=== PATIENT | female | born 1985 | race Two or more races ===

== ENCOUNTER 2024-11-05 11:39 | Emergency (ER) | payer OTHER, SELFPAY ==
--- NOTE | ~2024-11-05 | US_ITS ---
CLINICAL HISTORY: LLQ pain. ovarian cysts. Torsion? US pelvis transabdominal and transvaginal with Doppler Comparison: CT/SR - CT ABDOMEN PELVIS W IV CON - 11/05/24 14:09 EST Findings: Transabdominal scanning performed for overall anatomy. Transvaginal scanning performed for additional detail. Anteverted uterus is 7.7 cm length. Normal myometrium. No endometrial lesion, 2 mm thickness. There is an intrauterine device within the endometrial canal. Right ovary 2.5 x 1.9 x 2.0 cm. Left ovary 7.6 x 4.3 x 4.2cm. There is a 6.1 x 3.7 x 3.5 cm mildly complex cyst containing a septation within the left ovary. Normal color Doppler with arterial/venous spectral tracing of both ovaries. Small amount of free fluid adjacent to the left ovary. IMPRESSION: 1. 6.1 cm mildly complex cyst within the left ovary. Recommend ultrasound follow-up in 6 weeks. 2. There is a small amount of free fluid adjacent to the left ovary. 3. There is an intrauterine device within the endometrial canal. This document has been electronically signed by: Vernell Juárez MD on 11/05/2024 18:12:12
--- NOTE | ~2024-11-05 | CT_ITS ---
CLINICAL HISTORY: Abdominal pain. Colitis CT abdomen and pelvis with contrast Comparison: None Findings: The lung bases are clear. The gallbladder and solid organs are within normal limits. No renal stones. There is thickening of the wall of the colon extending from the distal transverse colon to the distal descending colon. No bowel obstruction. There is a 6.5 cm left ovarian cyst. Unremarkable right ovary. Intrauterine device within the endometrial canal. Near-complete decompression of the urinary bladder. Normal appendix. The bones are intact. IMPRESSION: 1. There is colitis of the distal colon. Consider infectious colitis or inflammatory bowel disease. 2. 6.5 cm left ovarian cyst. Recommend further evaluation with ultrasound. This document has been electronically signed by: Vernell Juárez MD on 11/05/2024 15:28:18
[2024-11-05 11:41] VITALS: BP 143/83; PULSE 118; RESP 18; TEMP 37.2; O2SAT 100; BMI 31.7
--- NOTE | 2024-11-05 11:43 | ED.ABDPAIN ---
HPI - Abdominal Pain General Chief Complaint: Abdominal Pain Stated Complaint: abd pain, blood in stool Time Seen by Provider: 11/05/24 13:03 Source: patient Mode of arrival: ambulatory Limitations: no limitations History of Present Illness ED Provider: Silas Keyes HPI narrative: 39 yold female with past medical history of rheumatoid arthritis and fibromyalgia presents to ED for lower abdominal pain and 4 episodes of diarrhea with bloody stool. Patient denies any fever or chills or any recent trauma. Patient denies being on any blood thinners or taking any Motrin every day. Related Data Previous Rx's ?Medication ?Instructions ?Recorded ciprofloxacin HCl 500 mg tablet 500 mg PO Q12H 7 days #14 tabs 11/05/24 metronidazole 500 mg tablet 500 mg PO BID 7 days #14 tabs 11/05/24 naproxen 500 mg tablet 500 mg PO BID PRN pain 7 days #14 11/05/24 tabs Allergies Allergy/AdvReac Type Severity Reaction Status Date / Time No Known Allergies Allergy Verified 11/05/24 11:47 Review of Systems Review of Systems Lower abdominal pain bloody diarrhea Yes all other systems are reviewed and are negative Physical Exam ED Vital Signs: Vital Signs - 24 hr 11/05/24 11:41 11/05/24 17:57 11/05/24 18:43 Temperature 98.9 F Pulse Rate 118 H 77 79 Respiratory Rate 18 14 18 Blood Pressure 143/83 H 124/71 127/79 Pulse Oximetry 100 99 98 Oxygen Delivery Method Room Air Room Air Room Air 11/05/24 19:06 Temperature 98.0 F Pulse Rate 79 Respiratory Rate 18 Blood Pressure 127/79 Pulse Oximetry 98 Oxygen Delivery Method Room Air BMI result Body Mass Index 31.7 Const General: cooperative, healthy appearing, comfortable and no acute distress Orientation/consciousness: patient oriented x3 HENMT Head: Yes normal to inspection, Yes No palpable skull fracture present, Yes normocephalic and Yes atraumatic Throat: Yes posterior oropharynx normal, Yes tonsils normal and Yes uvula midline Eyes General: appearance normal, both eyes and all related structures Neck Neck: Yes normal visual inspection, Yes full ROM, Yes no lymphadenopathy, Yes no meningeal signs, Yes trachea midline, Yes supple, No anterior neck swelling and No tender Chest Chest palpation & inspection: normal inspection of the chest and normal palpation of entire chest wall Resp Effort & Inspection: normal respiratory effort and able to speak in complete sentences Auscultation: clear to auscultation bilaterally Cardio Jugular venous distension: no JVD Heart sounds: S1 normal heart sound present and S2 normal heart sound present GI Inspection: Yes normal to inspection Palpation (GI): Soft to palpation, not firm, Tenderness to palpation present (GI) in the LLQ, no guarding and not rigid Other: Rectal exam negative for melena, black stool, bright red blood, or any active bleeding. General: Yes no CVA tenderness Back/Spine/Pelvis Back: no CVA tenderness and No back tenderness Skin General skin exam: no rashes or lesions noted, elasticity normal and turgor normal Neuro General: patient oriented x3, gait normal, tone normal, moves all extremities, Normal light touch and pain sensation, no meningeal signs, no focal motor deficits, CN's II-XI intact bilaterally and normal sensation to monofilament Extrem General: Yes normal to inspection, Yes full ROM and Yes capillary refill normal Psych Appearance: grossly normal, well kempt and not disheveled Course Course Course Narrative: This is an RME performed by Papito Espinoza CNP: Additional HPI, ROS, PE not included below will be deferred to primary provider. Patient is a 39-year-old female past medical history of rheumatoid arthritis, fibromyalgia, depression, anxiety presents emergency department for evaluation. She reports yesterday evening she began began experiencing mid lower abdominal pain described as an intense severe pain with the associated episodes of diarrhea. She noticed small amounts of blood in the diarrhea. Diarrhea has since resolved and now she is passing bright red blood from the rectum with presence of clots. She has vomited twice without any blood in the emesis. She denies any vaginal bleeding. She denies any hematuria, genitourinary symptoms. She does mention eating catered food yesterday. Only medication she takes semaglutide for weight loss. Plan: Serum labs, urinalysis, occult stool Medical Decision Making Medical Decision Making MDM Narrative: 39-year-old female presents to ED for lower abdominal pain and bloody diarrhea. Patient denies any new antibiotics or recent hospital admission. Rectal exam negative for any patsy blood, black stool, melena. Labs Pepcid CT scan of the abdomen ordered. 4:38pm: CT scan came back positive for colitis of the descending colon. Also shows 6.5 cm left ovarian cyst due to signs was sent for ultrasound to rule out torsion ovarian abscess. 6:30pm: Ultrasound negative for torsion but just confirmed cysts. Negative for signs of tubo-ovarian abscess. Patient will be discharged with antibiotics and recommend follow up with primary care provider. Patient explained worrisome signs and informed to return to the ED immediately. not suspecting peforation, abscess,small bowel obsttuction, PID, or any other life threatening etiologies. Differential Diagnosis Differential Diagnoses: The differential diagnosis associated with the presentation includes (Colitis, tubo-ovarian abscess, diverticulitis, torsion, appendicitis,) Admission/Observation Consideration of admission/observation: Escalation of care including admission/observation considered Lab Data MDM Lab Attestation statement: I reviewed the patient's lab results. 11/05/24 12:13 11/05/24 12:13 Labs: Lab Results 11/05/24 11/05/24 Range/Units 12:13 13:33 WBC 12.9 H (4.8-10.8) X10*3/uL RBC 4.48 (4.20-5.50) X10*6/uL Hgb 13.4 (12.0-16.0) g/dl Hct 40.4 (37.0-47.0) % MCV 90.2 (80.0-98.0) fL MCH 29.9 (27.0-33.0) pg MCHC 33.2 (31.0-35.0) g/dl RDW 12.2 (11.0-16.0) % Plt Count 307 (160-400) X10*3/uL MPV 10.1 (9.4-12.3) fL Immature Gran % (Auto) 0.2 (0.0-0.4) % Neut % (Auto) 87.0 H (45-73) % Lymph % (Auto) 7.0 L (20-40) % Sp[place]ding % (Auto) 5.2 (2-11) % Eos % (Auto) 0.1 (0-4) % Baso % (Auto) 0.5 (0-2) % Lymph # (Auto) 0.9 L (1.2-4.9) X10*3/uL [place]ding # (Auto) 0.7 (0.1-1.2) X10*3/uL Eos # (Auto) 0.0 (0.0-0.4) X10*3/uL Baso # (Auto) 0.1 (0.0-0.2) X10*3/uL Abs Immat Gran (auto) 0.02 (0.00-0.03) X10*3/uL Absolute Neuts (auto) 11.2 H (2.0-8.3) x10*3/uL Absolute Nucleated RBC 0.000 (0.0-0.012) X10*3/uL Nucleated RBC % (auto) 0.0 (0.0-0.2) /100WBC PT 12.9 H (10.9-12.4) SEC INR 1.1 (0.9-1.1) Sodium 139 (135-145) mmol/L Potassium 4.4 (3.3-5.1) mmol/L Chloride 107 (96-108) mmol/L Carbon Dioxide 24 (22-29) mmol/L Anion Gap 12 (12-20) BUN 14 (9-16) mg/dL Creatinine 0.75 (0.5-1.4) mg/dL Estim Creat Clear Calc 99.6 Estimated GFR > 60 Random Glucose 103 (60-115) mg/dL Calcium 9.1 (8.4-10.2) mg/dL Magnesium 1.9 (1.6-2.6) mg/dL Total Bilirubin 0.5 (0.0-1.0) mg/dL AST 25 (5-31) U/L ALT 19 (0-31) U/L Alkaline Phosphatase 62 (39-117) U/L Total Protein 8.1 H (6.5-8.0) g/dL Albumin 4.2 (3.5-5.0) g/dL Lipase 13 (8-78) U/L Urine Color Dark Yellow Urine Appearance Cloudy Urine pH 6.5 (5.0-9.0) Ur Specific Bevier >= 1.030 H (1.005-1.025) Urine Protein 30 (1+) H (Neg-Trace) mg/dL Urine Glucose (UA) Negative (Negative) mg/dL Urine Ketones 40 (Negative) mg/dL Urine Blood Large (3+) H (Negative) Urine Nitrite Negative (Negative) Ur Leukocyte Esterase Moderate (2+) H (Negative) Urine RBC >20 H (0-2) /HPF Urine WBC >50 H (0-5) /HPF Ur Squamous Epith Cells 0-2 (0-2) /HPF Urine Bacteria None Seen (None Seen) Hyaline Casts 0-2 (0-2) /LPF Urine Test NEGATIVE (NEGATIVE) Stool Occult Blood NEGATIVE (NEGATIVE) Influenza Type A (PCR) NEGATIVE (Negative) Influenza Type B (PCR) NEGATIVE (Negative) RSV RNA Qual (PCR) NEGATIVE (Negative) SARS-CoV-2 RNA (RT-PCR) NEGATIVE (Negative) Independent Interpretation I performed an independent interpretation of an: Ultrasound and CT Scan Radiology Impression Discussion of test interpretation with radiology: I have reviewed the radiologist's reading. Independent Historian Clinical information obtained from an independent historian. History obtained from or confirmed by: Other (Pain) Prescription Management I considered prescription management with: Pain Medication and Antibiotic Medications Administered Discontinued Medications Generic Name Dose Route Start Last Admin Trade Name Freq PRN Reason Stop Dose Admin Famotidine 20 mg 11/05/24 13:19 11/05/24 14:32 Famotidine/Pf 20 Mg/2 Ml Vial IVPUSH 11/05/24 13:20 20 mg ONCE ONE Administration Sodium Chloride 1,000 mls @ 999 mls/hr 11/05/24 13:06 11/05/24 16:54 Ns IV 11/05/24 14:06 Infused .Q1H1M STA Infusion Iohexol 100 ml 11/05/24 14:36 11/05/24 14:36 Iohexol 350 Mg/Ml 100 Ml Infus..Btl IV 11/05/24 14:37 85 ml ONCE ONE Administration Ketorolac Tromethamine 30 mg 11/05/24 18:56 11/05/24 19:03 Ketorolac Tromethamine 30 Mg/Ml Vial IM 11/05/24 18:57 30 mg ONCE ONE Administration Discharge Plan Discharge Clinical Impression: Colitis, Ovarian cyst, UTI (urinary tract infection) Patient Disposition: Home, Self-Care Instructions: Ovarian Cyst (ED), Urinary Tract Infection in Women (ED), Colitis (ED) Additional Instructions: You will need follow up with primary care provider and OBGYN. You will be given copy of CAT scan and ultrasound results. Return to the ED immediately for any worsening abdominal pain, nausea, vomiting, flank pain, fever, chills, profuse blood in stool, weakness, dizziness, or any other concerning symptoms. CT abdomen and pelvis with contrast Comparison: None Findings: The lung bases are clear. The gallbladder and solid organs are within normal limits. No renal stones. There is thickening of the wall of the colon extending from the distal transverse colon to the distal descending colon. No bowel obstruction. There is a 6.5 cm left ovarian cyst. Unremarkable right ovary. Intrauterine device within the endometrial canal. Near-complete decompression of the urinary bladder. Normal appendix. The bones are intact. IMPRESSION: 1. There is colitis of the distal colon. Consider infectious colitis or inflammatory bowel disease. 2. 6.5 cm left ovarian cyst. Recommend further evaluation with ultrasound. This document has been electronically signed by: Vernell Juárez MD on 11/05/2024 15:28:18 Dictated By: Vernell Juárez MD Signed By: <Electronically signed by Vernell Juárez MD in [place]> 11/05/24 1529 US pelvis transabdominal and transvaginal with Doppler Comparison: CT/SR - CT ABDOMEN PELVIS W IV CON - 11/05/24 14:09 EST Findings: Transabdominal scanning performed for overall anatomy. Transvaginal scanning performed for additional detail. Anteverted uterus is 7.7 cm length. Normal myometrium. No endometrial lesion, 2 mm thickness. There is an intrauterine device within the endometrial canal. Right ovary 2.5 x 1.9 x 2.0 cm. Left ovary 7.6 x 4.3 x 4.2cm. There is a 6.1 x 3.7 x 3.5 cm mildly complex cyst containing a septation within the left ovary. Normal color Doppler with arterial/venous spectral tracing of both ovaries. Small amount of free fluid adjacent to the left ovary. IMPRESSION: 1. 6.1 cm mildly complex cyst within the left ovary. Recommend ultrasound follow-up in 6 weeks. 2. There is a small amount of free fluid adjacent to the left ovary. 3. There is an intrauterine device within the endometrial canal. This document has been electronically signed by: Vernell Juárez MD on 11/05/2024 18:12:12 Dictated By: Vernell Juárez MD Signed By: <Electronically signed by Vernell Juárez MD in OV> 11/05/24 1813 Prescriptions: New ciprofloxacin HCl 500 mg tablet 500 mg PO Q12H 7 Days Qty: 14 0RF metronidazole 500 mg tablet 500 mg PO BID 7 Days Qty: 14 0RF naproxen 500 mg tablet 500 mg PO BID PRN (Reason: pain) 7 Days Qty: 14 0RF Stand Alone Forms: Work/School Release Interventions: ED Discharge Assessment Last Done: 11/05/24 19:06 Discharge Date/Time: 11/05/24 19:08 Print Language: Uzbek
[2024-11-05 12:18] LABS: MANUAL DIFF FLAG NO
[2024-11-05 12:19] LABS: Basophils Absolute Auto 0.1 X10*3/uL (0.0-0.2); Basophils Percent Auto 0.5 % (0-2); Eosinophils Percent Auto 0.1 % (0-4); Hematocrit 40.4 % (37.0-47.0); Hemoglobin 13.4 g/dl (12.0-16.0); Imm Gran Abs Auto 0.02 X10*3/uL (0.00-0.03); Imm Gran Pct Auto 0.2 % (0.0-0.4); Lymphocytes Absolute Auto 0.9 X10*3/uL (1.2-4.9); Mean Corpuscular HGB Conc 33.2 g/dl (31.0-35.0); Mean Corpuscular Hemoglobin 29.9 pg (27.0-33.0); Mean Corpuscular Volume 90.2 fL (80.0-98.0); Mean Platelet Volume 10.1 fL (9.4-12.3); Monocytes Absolute Auto 0.7 X10*3/uL (0.1-1.2); Monocytes Percent Auto 5.2 % (2-11); Neutrophils Absolute Auto 11.2 x10*3/uL (2.0-8.3); Platelet Count 307 X10*3/uL (160-400); Red Blood Count 4.48 X10*6/uL (4.20-5.50); Red Cell Distribution Width 12.2 % (11.0-16.0); White Blood Count 12.9 X10*3/uL (4.8-10.8)
[2024-11-05 12:20] LABS: Appearance Urine Cloudy; Color Urine Dark Yellow; Glucose Urine UA Negative (Negative); Leukocyte Esterase Urine Moderate (2+) (Negative); Nitrite Urine Negative (Negative); PH 6.5 (5.0-9.0); Specific Gravity - Urine >= 1.030 (1.005-1.025); UMIC TRIGGER UACC YES; UPreg QC Valid YES; Urine Blood Large (3+) (Negative); Urine Ketones 40 mg/dL (Negative); Urine Pregnancy NEGATIVE (NEGATIVE); Urine Protein 30 (1+) mg/dL (Neg-Trace)
--- OUTSIDE RECORDS SUMMARY | 2024-11-05 12:23 | XMS_ITS ---
Author Organization [facility]. Address [address] [facility] [address] [place] [address] Care Team Providers Care Vegetable Loader Name Role Phone , Referral Primary Care Provider Stephaniaa Derrell Caldera Unavailable [phone] Allergies No Known Allergies Results Component Value Reference Range Notes CBC with Diff plus Absolute Counts (Not yet reviewed by provider) Interpretation: Performing Lab: Notes/Report: Test performed by [facility], [address] , [address], [place] [address] Chacorta Pérez MD, Economist Research Assistant CLIA: [id number] WBC 7.3 3.8-11.5 K/uL Red Blood Cell Count (RBC) 4.41 3.60-5.30 M/mm 3 Hemoglobin (Hgb) 13.1 11.5-15.5 gm/dL Hematocrit (HCT) 40.5 35.2-46.4 % MCV 91.8 79.0-99.0 fL MCH 29.7 26.9-35.0 pg MCHC 32.3 30.4-34.8 g/dL RDW 40.7 38.6-53.8 fL Platelet Count 329 137-397 K/cumm Neutrophils Automated 65.6 41.0-77.0 % Lymphocytes Automated 23.2 14.0-48.0 % Monocytes Automated 8.6 4.0-13.0 % Eosinophils Automated 1.2 0.0-8.0 % Basophils Automated 1.1 0.0-1.5 % Immature Granulocyte Automated 0.3 0.0-1.0 % Absolute Neutrophil Count 4.8 2.0-8.2 K/uL Absolute Lymphocyte Count 1.7 0.9-3.6 K/uL Absolute Monocyte Count 0.6 0.3-1.0 K/uL Absolute Eosinophil Count 0.1 0.0-0.6 K/uL Absolute Basophil Count 0.1 0.0-0.1 K/uL Absolute Immature Granulocyte 0.02 0.00-0.03 K /uL Comprehensive Metabolic Pane l (CMP) (Not yet reviewed by provider) Interpretation: Performing Lab: Notes/Report: Test performed by [email or web address] [address] [place] [address] , [place] [address] Chacorta Pérez MD, Economist Research Assistant CLIA: [id number] Sodium 139 135-145 mEq/L Potassium 4.7 3.5-5.3 mEq/L Chloride 103 97-108 mEq/L CO2 29 22-32 mEq/L Glucose 75 65-99 mg/dL BUN 14 6-20 mg/dL Creatinine 0.71 0.50-1.00 mg/dL Calcium 9.6 8.6-10.4 mg/dL eGFR by Creatinine 113 >59 mL/min/1.73m2 Protein 7.5 6.0-8.3 g/dL Albumin 4.2 3.5-5.3 g/dL Alkaline Phosphatase 69 35-121 IU/L ALT (SGPT) 16 <5-47 IU/L AST (SGOT) 17 <5-40 IU/L Bilirubin, Total 0.4 <0.2-1.2 mg/dL A/G Ratio 1.3 1.1-2.5 mg/dL C-Reactive Protein (CRP) (No t yet reviewed by provider) Interpretation: Performing Lab: Notes/Report: Test performed by [email or web address] [address] [place] [address] , [place] [address] Chacorta Pérez MD, Economist Research Assistant CLIA: [id number] C-Reactive Protein (CRP) 0.26 <0.50 mg/dL Erythrocyte Sedimentation Ra te (ESR), Automated (Not yet reviewed by provider) Interpretation: Performing Lab: Notes/Report: Test performed by [email or web address] [address] [place] [address] , [address], [place] [address] Chacorta Pérez MD, Economist Research Assistant CLIA: [id number] Erythrocyte Sedimentation Rate (ESR), Automated 13 <26 mm/hr Vitamin D 25-Hydroxy (Not ye t reviewed by provider) Interpretation: Performing Lab: Notes/Report: Test performed by [email or web address] [address] [place] [address] , [address], [place] [address] Chacorta Pérez MD, Economist Research Assistant CLIA: [id number] REASON FOR VISIT f/u for fibromyalgia and RA Medications Medication SIG (Take, Route, Frequency, Duration) Notes Start Date End Date Status Vitamin D2 50,000 intl units 1 cap(s) or ally once a week for 90 days Active clindamycin topical 1% 1 mary applied top ically 2 times a day for 30 day(s) PRN Active DULoxetine 60 mg 1 cap(s) orally once a day for 30 day(s) Active cyclobenzaprine 10 mg 1 tab(s) orally on ce a day PRN Active rizatriptan 10 mg 1 tab(s) orally once a day PRN PRN Active predniSONE 5 mg 1-2 tab(s) orally on ce a day PRN for flare ups of pain and inflammation for 30 days Active Hydroxychloroquine Sulfate 200 mg 1 tab(s) orally 2 times a day. Take with food. for 90 day(s) Active doxycycline hyclate 100 mg 1 tab(s) oral ly once a day Active Social History Tobacco Use: Social History Observation Description Date Details (start date - stop date) Former Smoker NA - NA Alcohol Screening Question Answer Notes Did you have a drink containing alcohol in the p ast year? No smoking Question Answer Notes Are you a: former smoker Quit 2019 ( smok er for 1 yr ) Vital Signs Temperature 97.6 degrees Fahrenheit 08/24/20 23 Blood pressure systolic 127 mm Hg 08/24/20 23 Blood pressure diastolic 89 mm Hg 023 Heart Rate 89 /min 08/24/2023 Respiratory Rate 16 /min 08/24/2023 Height 62 in 08/24/2023 Weight 169 lbs 08/24/2023 BMI 30.91 kg/m2 08/24/2023 Encounters Encounter Location Date Provider Diagnosis [facility] [address] [address] 08/24/2023 Derrell Bello Rheumatoid arthritis with rheumatoid factor of multiple sites without organ or systems involvement M05.79 ; Fibromyalgia M79.7 ; Polyarthritis, unspecified M13.0 ; Pain in right hip M25.551 ; Pain in left hip M25.552 ; Other low back pain M54.59 ; Pain in right hand M79.641 ; Pain in left hand M79.642 ; Encounter for screening for diseases of the blood and blood-forming organs and certain disorders involving the immune mechanism Z13.0 ; Encounter for screening for other musculoskeletal disorder Z13.828 ; Encounter for screening for other viral diseases Z11.59 ; Encounter for screening for other infectious and parasitic diseases Z11.8 ; Encounter for screening for respiratory tuberculosis Z11.1 ; Encounter for screening for other digestive system disorders Z13.818 ; Vitamin D deficiency, unspecified E55.9 and Other assisted (current) drug therapy Z79.899 Assessments Encounter Date Diagnosis (ICD Code) Assessment Notes Treatment Notes Treatment Clinical Notes Section Notes 08/24/2023 Rheumatoid arthritis with rheumatoid factor of multiple sites without organ or systems involvement (ICD-10 - M05.79) 08/24/2023 Fibromyalgia (ICD-10 - M79.7) Patient is a 38 year old female with fibromyalgia and start of seropositive RA. Continue HCQ 200mg bid. Pt had eye exam in 2022. She is considering having more children after she leaves the , so that would limit medication options. May try Cimzia if symptoms worsen, pamphlet provided. She responded to Mj samples. May take prednisone 5mg on PRN basis for flare ups. Continue vit D 50,000 IU q week for deficiency. She did not get refills for vit D. Changed to vit D2 from vit D3. Continue Cymbalta for fibromyalgia and anxiety, prescribed by PCP. Labs today. Labs 05-24-23 cbc, cmp, esr, crp wnl. Labs 02-24-23 cbc, cmp, esr, crp wnl, vit D 20.6. Labs 09-24-22 GIULIANA neg, aso, cbc, cmp, ccp, esr, crp, endomysial ab, g6pd, deaminated gliadin, HBcAb IgM, HBsAg, HCV IgG, q TB gold neg, +RF IgG 35, ttg, ua rbc 6-10, u cx no growth, u p/c wnl, sua, vit D 13, 14-3-3- eta prot neg. Patient was seen fsxu-tl-nfhd for 30 minutes and more than 50% of the time was spent counseling, reviewing test results and coordinating care. 09/24/2022: X-ray of the hands PA and oblique view: Right hand alignment is straight. Fracture or dislocation, none. Soft tissue swelling, negative. Foreign bodies, none. Joint spaces are maintained. 09/24/2022: Left hand alignment is straight. Fracture or dislocation, none. Soft tissue swelling, negative. Foreign bodies, none. Joint spaces are maintained. 09/24/2022: X-ray of the pelvis AP view: Alignment is straight. Fracture or dislocation, none. SI joints are patent bilaterally. Hip joint spaces are preserved. Bone mineralization is normal. IUD device is noted. Visualized bony pelvis intact. 09/24/2022: X-ray of the right hip frog leg view: Alignment is straight. Fracture or dislocation, none. Bone mineralization is normal. Joint space is maintained. 09/24/2022: X-ray of the left hip frog leg view: Alignment is straight. Fracture or dislocation, none. Bone mineralization is normal. Joint space is maintained. 09/24/2022: X-ray of the right SI joint oblique view: Alignment is straight. No sclerosis, erosion or narrowing. Joint is patent. 09/24/2022: X-ray of the left SI joint oblique view: No sclerosis, erosion or narrowing. Joint is patent. 09/24/2022: X-ray of the right shoulder internal and external rotation: Alignment is straight. Fracture or dislocation, none. Bone mineralization is normal. AC joint and glenohumeral articulation is normal. 09/24/2022: Left shoulder alignment is straight. Fracture or dislocation, none. Soft tissue swelling, negative. AC joint, glenohumeral articulation and bone mineralization is normal. 08/24/2023 Polyarthritis, unspecified (ICD-10 - M13.0) 08/24/2023 Pain in right hip (ICD-10 - M25.551) 08/24/2023 Pain in left hip (ICD-10 - M25.552) 08/24/2023 Other low back pain (ICD-10 - M54.59) 08/24/2023 Pain in right hand (ICD-10 - M79.641) 08/24/2023 Pain in left hand (ICD-10 - M79.642) 08/24/2023 Encounter for screening for diseases of the blood and blood-forming organs and certain disorders involving the immune mechanism (ICD-10 - Z13.0) 08/24/2023 Encounter for screening for other musculoskeletal disorder (ICD-10 - Z13.828) 08/24/2023 Encounter for screening for other viral diseases (ICD-10 - Z11.59) 08/24/2023 Encounter for screening for other infectious and parasitic diseases (ICD-10 - Z11.8) 08/24/2023 Encounter for screening for respiratory tuberculosis (ICD-10 - Z11.1) 08/24/2023 Encounter for screening for other digestive system disorders (ICD-10 - Z13.818) 08/24/2023 Vitamin D deficiency, unspecified (ICD-10 - E55.9) 08/24/2023 Other assisted (current) drug therapy (ICD-10 - Z79.899) Plan Of Treatment Medication Medication Name Sig Start Date Stop Date Notes Vitamin D2 50,000 intl units 1 cap(s) or ally once a week for 90 days predniSONE 5 mg 1-2 tab(s) orally on ce a day PRN for flare ups of pain and inflammation for 30 days Hydroxychloroquine Sulfate 2 00 mg 1 tab(s) orally 2 times a day. Take with food. for 90 day(s) Treatment Notes Assessment Notes Fibromyalgia Patient is a 38 year old female with fibromyalgia and start of seropositive RA. Continue HCQ 200mg bid. Pt had eye exam in 2022. She is considering having more children after she leaves the , so that would limit medication options. May try Cimzia if symptoms worsen, pamphlet provided. She responded to Mj samples. May take prednisone 5mg on PRN basis for flare ups. Continue vit D 50,000 IU q week for deficiency. She did not get refills for vit D. Changed to vit D2 from vit D3. Continue Cymbalta for fibromyalgia and anxiety, prescribed by PCP. Labs today. Labs 05-24-23 cbc, cmp, esr, crp wnl. Labs 02-24-23 cbc, cmp, esr, crp wnl, vit D 20.6. Labs 09-24-22 GIULIANA neg, aso, cbc, cmp, ccp, esr, crp, endomysial ab, g6pd, deaminated gliadin, HBcAb IgM, HBsAg, HCV IgG, q TB gold neg, +RF IgG 35, ttg, ua rbc 6-10, u cx no growth, u p/c wnl, sua, vit D 13, 14-3-3- eta prot neg. Patient was seen cpsi-vc-lmcz for 30 minutes and more than 50% of the time was spent counseling, reviewing test results and coordinating care. Pending Test Test Name Order Date CBC with Diff plus Absolute Counts 08/24 Comprehensive Metabolic Panel (CMP) 07/29 C-Reactive Protein (CRP) 08/24/2023 Erythrocyte Sedimentation Rate (ESR), Au tomated 08/24/2023 Vitamin D 25-Hydroxy 08/24/2023 Next Appt Details Follow Up: 3 Months, Reason: Progress Notes * HENRY SILVERMANTRONHerveB:03[birth year] (38 yo F)Acc No.[id number]:08/24/2023 Progress Notes Patient:?Bushra CHAMBERLAIN Provider:?SOCORRO Escobar :1985???Age:38 Y???Sex:Female D ate:08/24/2023 Address:[address] [place] [address] Pcp:Referral Alyssa Subjective: * Chief Complaints: * ???1. f/u for fibromyalgia a nd RA. * HPI: ???Rheumatology:? Patient is a 38 year-old female presenting for f/u of fibromyalgia and RA. ?She reports pain in hips, ankles, back, shoulders. Also having RUQ abdominal pain. She was told that it may be FM. ?2 years ago, she was running and started having pain in RUQ. She also started having numbness in right arm. Later on, she started having intermittent random pain, not related to activities. She has occasional cramps and tingling in her hands and wrists. She had testing for carpal tunnel and it was negative. Cold weather have aggravated her symptoms. ?Pain is worse in the morning. Usually her right hip hurts a lot when she gets out of bed. When she puts pressure in her left ankle, she feels a sharp pain. Left ankle pain is worse than right. ?Left shoulder worse than right, hurts to raise arms. Occasional pain in left knee. Fingers feel puffy in the morning. She types a lot for work and hands hurt at the end of the day. ?Every day something different hurts. ?She reports fatigue. She has been having HAs and they have been worse. She started taking Celebrex qd about a week ago, but has not noticed any difference. It has not helped with her joint pain either. Duloxetine was increased to 60mg qd. ?Denies fever, skin rashes, dry eyes, oral ulcers, dysphagia. She has occasional dry mouth. ?States that UA always has blood. She has occasional dysuria, painful intercourse. She has constipation. GI advised miralax. No pain when eating. She has occasional heartburn when she eats foods with flour like bread. ?She gets intermittent abscesses in groin area. This started about a year ago. She sees wholesale parts salesperson and was prescribed doxycycline. ?She has insomnia. She wears a CPAP. ?No know family history of FM, RA. ?10/15/22 ?She is still having pain in hips, more so on right side. She is doing cupping on post. She tried Mj a few days, helped a little. She hurts more when she is active. ?She saw neurologist last week and was diagnosed with migraines. She was advised to continue Celebrex for now and has a f/u next week. Celebrex helps decrease intensity of headaches. Celebrex does not help with her joints. ?She made an appt with supervisor locomotive for evaluation of ankle pain. ?Yesterday, she had pain in right shoulder and right SI joint, but they are better today. Left shoulder and left ankle are hurting. It hurts to raise foot. ?12/22/22 ?She stopped Celebrex for headaches. Neurologist prescribed another medication, thinks it is rizatriptan, PRN for migraines and it has helped. ?She started HCQ after last visit and feels that it has helped some. She is tolerating it well. ?Today, she has pain in right hip and left knee. ?She saw a supervisor locomotive for her ankle. She was given a brace to use when she is more active or walking long distances. ?She has been having more low back pain the past 1-2 weeks. Pain is worse after she sits for a long time. Low back and hip also hurts in the morning. ?02/24/23 ?She has been having more pain in right hand this past month. It hurts to type and write. She wakes up with pain and swelling in right hand. Fingers feel very rigid and they cramp up at times. Right wrist also hurts. ?Left knee is a little better. Right hip is still hurting some. She is doing cupp[facility] her hip and low back at [facility]. ?She is currently in process of leaving the . ?Left hand hurts when it is cold. ?05/24/23 ?She is still having pain and stiffness in hands, right worse than left. They still swell up at times. She went bowling on Wednesday and right hand fingers started cramping and getting stuck. Back and right hip is is still hurting a lot. She is still doing cupping which helps some. Other joints are about the same. ?08/24/23 ?She is traveling to [place] to visit family. ?Cold weather has aggravated her symptoms. Hands and hurting. They were swollen yesterday. Today they are a little better. She is still having back and neck pain. She tried a nerve blocks for neck pain last week. Neck was very stiff and she could not move her neck for a day. * ROS:?Rheumatology:?Denies?fever, night sweats, weight loss, insomnia, loss of appetite, weakness, Sicca, Alopecia, Raynaud's, Oral Ulcers, Photosensitivity, Skin rashes, Serositis, Myalgias or history of blood clots, Neurological complaints, Cardiovascular complaints, GI/ complaints, Pulmonary complaints, Renal complaints.?Complains of?Arthralgias/Arthritis, Musculoskeletal complaints.? * Medical History:?Anxiety, De pression, Insomnia, Sleep Apnea (on CPAP), Migraine headache. * Surgical History:?Appendecto my 2007. * Family History:?Father: allison bruce?Mother: alive.?1 brother(s) , 1 sister(s) - healthy. 1 son(s) - healthy. .? * Social History:?Smoking: no? Are you a:?former smoker Quit 2018 ( smoker for 1 yr ) .?Sexual activity: yes. History of iv drug use: no. Incarcerated: No. Alcohol Screening: no?Did you have a drink containing alcohol in the past year??No.?Marital status: . Occupation: . Exercise: yes. Travel: no. Recreational drug use: no. * Medications:?Taking rizatrip bearden 10 mg tablet 1 tab(s) orally once a day PRN , Notes to Pharmacist: PRN, Taking cyclobenzaprine 10 mg tablet 1 tab(s) orally once a day , Notes to Pharmacist: PRN, Taking DULoxetine 60 mg delayed release capsule 1 cap(s) orally once a day , Taking doxycycline hyclate 100 mg tablet 1 tab(s) orally once a day , Taking clindamycin topical 1% solution 1 mary applied topically 2 times a day , Notes to Pharmacist: PRN, Taking Hydroxychloroquine Sulfate 200 mg tablet 1 tab(s) orally 2 times a day. Take with food. , Taking predniSONE 5 mg tablet 1-2 tab(s) orally once a day PRN for flare ups of pain and inflammation , Taking Vitamin D2 50,000 intl units capsule 1 cap(s) orally once a week , Medication List reviewed and reconciled with the patient * Allergies:?N.K.D.A. Objective: * Vitals:?BP: 127/89, Pain Sca le: 6, HR: 89, Wt: 169, Temp: 97.6, RR: 16, Ht: 62, BMI:30.91. * Examination: ???General examination: ?General appearance:?well nourished and hydrated, pleasant, no acute distress.?HEENT?ATNC, PERRL/EOMI, No Pallor.?Neck:?No JVD, No Cervical lymph adenopathy, No thyroid enlargement.?CVS:?S1 + S2, No murmurs.?Lungs:?CTA B/L.?Abdomen:?BS+, No tenderness, No organomegaly.?Neurologic:?AAOx3, muscle strength 5/5 B/L, No gross motor or sensory deficit.?Extremities:?no clubbing, no edema, no cyanosis.?Skin:?no rash, moist, warm, no tophi, no nail fold changes, no palpable purpura, no onycholysis, no telangiectasias.?Lymph nodes:? no supraclavicular or cervical lymphadenopathy.?Peripheral pulses:?normal (2+) bilaterally.?Oral cavity:?no lesions, no thrush, no stomatitis, no ulcers, moist.?Psych?Affect and Mood wnls.?Rheumatology: ?Cervical spine:?normal ROM.?Shoulders:?+tender, dec ROM on left.?Elbows:?nontender, FROM bilaterally.?Wrists:?nontender, FROM bilaterally.?Hands:?nontender, no synovitis.?Thoracic spine:?normal.?Lumbar spine:?nontender.?Hips:?FROM, nontender.?Knees:?normal alignment and ROM.?Ankles:?nontender, no synovitis, FROM bilaterally.?Feet:?no tenderness, no synovitis.? * Physical Examination:?General:?General appearence?pleasant.?Build?average.? Assessment: * Assessment: 1.?Rheumatoid arthritis with rheumatoid factor of multiple sites without organ or systems involvement - M05.79 (Primary)?2.?Fibromyalgia - M79.7?3.?Polyarthritis, unspecified - M13.0?4.?Pain in right hip - M25.551?5.?Pain in left hip - M25.552?6. Other low back pain - M54.59?7.?Pain in right hand - M79.641?8.?Pain in left hand - M79.642?9.?Encounter for screening for diseases of the blood and blood-forming organs and certain disorders involving the immune mechanism - Z13.0?10.?Encounter for screening for other musculoskeletal disorder - Z13.828?11.?Encounter for screening for other viral diseases - Z11.59?12.?Encounter for screening for other infectious and parasitic diseases - Z11.8?13.?Encounter for screening for respiratory tuberculosis - Z11.1?14.?Encounter for screening for other digestive system disorders - Z13.818?15.?Vitamin D deficiency, unspecified - E55.9?16.?Other terminal computer operator (current) drug therapy - Z79.899? Plan: * Treatment: 2.?Fibromyalgia? Continue Vitamin D2 capsule, 50,000 intl units, 1 cap(s), orally, once a week, 90 days, 12, Refills 0.?LAB: CBC with Diff plus Absolute Counts (Collection Date & Time - 08/24/2023 12:02 PM) ?LAB: Comprehensive Metabolic Panel (CMP) (Collection Date & Time - 08/24/2023 12:02 PM) ?LAB: C-Reactive Protein (CRP) (Collection Date & Time - 08/24/2023 12:02 PM) ?LAB: Erythrocyte Sedimentation Rate (ESR), Automated (Collection Date & Time - 08/24/2023 12:02 PM) Notes: Patient is a 38 year old female with fibromyalgia and start of seropositive RA. Continue HCQ 200mg bid. Pt had eye exam in 2022. She is considering having more children after she leaves the , so that would limit medication options. May try Cimzia if symptoms worsen, pamphlet provided. She responded to Mj samples. May take prednisone 5mg on PRN basis for flare ups. Continue vit D 50,000 IU q week for deficiency. She did not get refills for vit D. Changed to vit D2 from vit D3. Continue Cymbalta for fibromyalgia and anxiety, prescribed by PCP. Labs today. Labs 05-24-23 cbc, cmp, esr, crp wnl. Labs 02-24-23 cbc, cmp, esr, crp wnl, vit D 20.6. Labs 09-24-22 GIULIANA neg, aso, cbc, cmp, ccp, esr, crp, endomysial ab, g6pd, deaminated gliadin, HBcAb IgM, HBsAg, HCV IgG, q TB gold neg, +RF IgG 35, ttg, ua rbc 6-10, u cx no growth, u p/c wnl, sua, vit D 13, 14-3-3- eta prot neg. Patient was seen trjx-ch-bshl for 30 minutes and more than 50% of the time was spent counseling, reviewing test results and coordinating care.?? Clinical Notes: NS: 2; WIDOWS: 2; MARGIN: 0px; LETTER-SPACING: normal; TEXT-INDENT: 0px; nnhq-kxkmfcg-dvfslwywj: normal; poik-bxcuihu-iqdq: normal; -gaufpw-pcni-umufcr-width: 0px; awxq-scadlkozoy-ksrazytmv: initial; ajie-pkjbddlpfy-irahi: initial; dnhi-jrpxwmaxaf-cwpqh: initial >09/24/2022: X-ray of the hands PA and oblique view: Right hand alignment is straight. Fracture or dislocation, none. Soft tissue swelling, negative. Foreign bodies, none. Joint spaces are maintained. NS: 2; WIDOWS: 2; MARGIN: 0px; LETTER-SPACING: normal; TEXT-INDENT: 0px; akgs-rnldrzv-ddrowogpe: normal; mnjv-lojlpez-arcb: normal; -utqrpn-fgdd-ezilco-width: 0px; bqvj-mcphxewwxj-eoyvdlfzb: initial; fidy-nhmbjthwci-iatnn: initial; zzpe-keograwjih-htaql: initial > NS: 2; WIDOWS: 2; MARGIN: 0px; LETTER-SPACING: normal; TEXT-INDENT: 0px; irwk-xvqmeuy-lpjxaczgs: normal; ftng-fdpknzc-mkut: normal; -zjnlfq-ylyb-kmyucn-width: 0px; hkfy-qdxcgeapks-ofeapdbtg: initial; oevc-jnbhygxyve-znihw: initial; bnjh-ylbhfrjlop-vyera: initial >09/24/2022: Left hand alignment is straight. Fracture or dislocation, none. Soft tissue swelling, negative. Foreign bodies, none. Joint spaces are maintained. NS: 2; WIDOWS: 2; MARGIN: 0px; LETTER-SPACING: normal; TEXT-INDENT: 0px; meqh-efizicd-rzagewtep: normal; xswq-jlxoieh-yiry: normal; -lhbuxf-phzd-uuakjg-width: 0px; vwqs-ylahfyfcsr-hjwcgaclj: initial; eiuo-ivbbbkdegn-saqgi: initial; ohci-ykzsfhdpql-qrcbo: initial > NS: 2; WIDOWS: 2; MARGIN: 0px; LETTER-SPACING: normal; TEXT-INDENT: 0px; zfpv-zwaihuu-gswtadhkz: normal; oswl-jnxqava-jccz: normal; -dtppxw-brxx-vqqexl-width: 0px; dxhn-rsukqiverg-hybifzyth: initial; nahe-fbretnishw-fozts: initial; rgqk-vnanxyrsrt-hipmp: initial >09/24/2022: X-ray of the pelvis AP view: Alignment is straight. Fracture or dislocation, none. SI joints are patent bilaterally. Hip joint spaces are preserved. Bone mineralization is normal. IUD device is noted. Visualized bony pelvis intact. NS: 2; WIDOWS: 2; MARGIN: 0px; LETTER-SPACING: normal; TEXT-INDENT: 0px; vnhw-wpygnjx-wisnlpbfq: normal; bxmc-jwwltmi-ozuq: normal; -xrxnbw-gzmw-adgliq-width: 0px; dkbc-stweogzedn-akcpbijht: initial; ljgy-cgggtvfqps-kglrx: initial; whec-zwkivnszeu-gjxac: initial > NS: 2; WIDOWS: 2; MARGIN: 0px; LETTER-SPACING: normal; TEXT-INDENT: 0px; warg-vtowyxu-zfovcyvpp: normal; xdaq-vjjxfei-aywb: normal; -doalci-lscf-knyopo-width: 0px; adlz-zcqubbmlvu-ouzrvnmet: initial; njsi-hxlimbrnoj-kgpmn: initial; gfaz-fsjepkcwly-ypscj: initial >09/24/2022: X-ray of the right hip frog leg view: Alignment is straight. Fracture or dislocation, none. Bone mineralization is normal. Joint space is maintained. NS: 2; WIDOWS: 2; MARGIN: 0px; LETTER-SPACING: normal; TEXT-INDENT: 0px; ujtr-sqrttxc-drdswqoaq: normal; rkwu-sizlial-bknd: normal; -stcena-qtqv-jzhoii-width: 0px; ocbt-jcxovbwyrg-euxqvvtym: initial; ntfp-zwayrobymr-dkfry: initial; fnhm-hwzgqgklvp-gkivq: initial > NS: 2; WIDOWS: 2; MARGIN: 0px; LETTER-SPACING: normal; TEXT-INDENT: 0px; ejyb-irpjkxi-osybqqnpc: normal; ogya-rpzcmwm-czlm: normal; -afjdaw-owez-ldrtne-width: 0px; vjxk-muvexoswvv-asqoddcme: initial; ttpv-nbaujidarb-eytkd: initial; viqq-pjnohhqzjo-dtgml: initial >09/24/2022: X-ray of the left hip frog leg view: Alignment is straight. Fracture or dislocation, none. Bone mineralization is normal. Joint space is maintained. NS: 2; WIDOWS: 2; MARGIN: 0px; LETTER-SPACING: normal; TEXT-INDENT: 0px; ymnt-uvciotv-bjtdhyocq: normal; vnvj-zhoxpjp-vfyo: normal; -lbhljn-mqhl-zjbeca-width: 0px; wkuf-iewayxdpaz-mitwzvmrs: initial; toet-amumrigaso-ynmpo: initial; glvd-ciiapqovwf-wyatp: initial > NS: 2; WIDOWS: 2; MARGIN: 0px; LETTER-SPACING: normal; TEXT-INDENT: 0px; kusa-hhlmxct-rnvvfdtrc: normal; snkw-vxevfjq-hxjj: normal; -whssiq-coqz-mfjebm-width: 0px; qhwu-ewgzlxezpt-czvkjhxmx: initial; garf-nwysnycwgm-cauvm: initial; iwaf-nwiqljzhkb-uqfwq: initial >09/24/2022: X-ray of the right SI joint oblique view: Alignment is straight. No sclerosis, erosion or narrowing. Joint is patent. NS: 2; WIDOWS: 2; MARGIN: 0px; LETTER-SPACING: normal; TEXT-INDENT: 0px; sinf-cqvfpcr-sgwxazlce: normal; fwqc-qtmqkqo-vgzs: normal; -ofkesq-hkxp-rvvuup-width: 0px; kicr-bskbvllecx-rtaeaizre: initial; mndm-rjavlhcpsv-lqwdw: initial; hcto-kticnjuycr-gvrat: initial > NS: 2; WIDOWS: 2; MARGIN: 0px; LETTER-SPACING: normal; TEXT-INDENT: 0px; diss-hfbadnz-mqabpcnbj: normal; sqxi-cfxunpp-ckuk: normal; -izncdg-dlwb-mfhsou-width: 0px; lfnw-ddruiyngaq-guoitzclp: initial; efvz-ktcmjnhwpc-fmdha: initial; jxrp-meuiegvucp-ksevt: initial >09/24/2022: X-ray of the left SI joint oblique view: No sclerosis, erosion or narrowing. Joint is patent. NS: 2; WIDOWS: 2; MARGIN: 0px; LETTER-SPACING: normal; TEXT-INDENT: 0px; fana-nhxoocg-sqtbnxejr: normal; grma-mvgefpa-ksqj: normal; -bnalml-potl-ndixkp-width: 0px; wurp-ttlknfnnti-urtmivpim: initial; wsfn-fcmormijlr-fqpfq: initial; refs-zhbzikrfwg-mybsp: initial > NS: 2; WIDOWS: 2; MARGIN: 0px; LETTER-SPACING: normal; TEXT-INDENT: 0px; effn-gwfilom-migkrettd: normal; myil-urrisui-khqt: normal; -tkcblt-wfgf-xdnauv-width: 0px; cvah-ykduuuakxo-ghnttdygl: initial; fgjf-fosmqexhsp-gsnmw: initial; sjuq-uhigmsjdgf-mnmlt: initial >09/24/2022: X-ray of the right shoulder internal and external rotation: Alignment is straight. Fracture or dislocation, none. Bone mineralization is normal. AC joint and glenohumeral articulation is normal. NS: 2; WIDOWS: 2; MARGIN: 0px; LETTER-SPACING: normal; TEXT-INDENT: 0px; fyua-klhsuzv-fiohdeoyf: normal; kbdj-yziqhls-zvge: normal; -czdmre-tmoj-xnwpdf-width: 0px; qost-oovjzgipym-vbpgiuwgr: initial; vxib-impavjnzhy-jzgzr: initial; iwkg-khivjfbuii-jvopx: initial > NS: 2; WIDOWS: 2; MARGIN: 0px; LETTER-SPACING: normal; TEXT-INDENT: 0px; xjsc-irlqjef-vgcintqst: normal; bkju-tjfzetx-srjj: normal; -yqgdfw-fxtq-hejetp-width: 0px; vqcy-jmmnwrpioc-nxigdcivv: initial; ojlu-hkbbxffjdn-stggm: initial; ejvc-xqaxicbnjw-qqohm: initial >09/24/2022: Left shoulder alignment is straight. Fracture or dislocation, none. Soft tissue swelling, negative. AC joint, glenohumeral articulation and bone mineralization is normal.?? 3.?Vitamin D deficiency, uns pecified?LAB: Vitamin D 25-Hydroxy (Collection Date & Time - 08/24/2023 12:02 PM) 4.?Other assisted (current) drug therapy?LAB: CBC with Diff plus Absolute Counts (Collection Date & Time - 08/24/2023 12:02 PM) ?LAB: Comprehensive Metabolic Panel (CMP) (Collection Date & Time - 08/24/2023 12:02 PM) ?LAB: C-Reactive Protein (CRP) (Collection Date & Time - 08/24/2023 12:02 PM) ?LAB: Erythrocyte Sedimentation Rate (ESR), Automated (Collection Date & Time - 08/24/2023 12:02 PM) ?LAB: Vitamin D 25-Hydroxy (Collection Date & Time - 08/24/2023 12:02 PM) * Preventive Medicine:? ??Counseling:?DMARDS risk benefit: Risk vs. benefit ratio discussed along with any applicable potential toxicities including skin, mucosal membranes, liver, GI, renal, bone marrow. Need for appropriate monitoring visits and studies discussed. All questions anwered?.?Sunscreen advised?.?Reminded of yearly eye exam?.?Glucocorticoids risks reviewed including but not limited to the risk of osteoporosis, infections, diabetes, hypertension, AVN and weight gain?.? * Follow Up:?3 Months * Billing Information: * Visit Code:? 81114 Office Visit, Est Pt., Level 4. * Procedure Codes:? * ICAL NEUROPSYCHOLOGIST Electronically co-signed by Chele Gallardo MD on 09/09/2023 at 09:20 AM CLINICAL NEUROPSYCHOLOGIST Sign off status: Completed true * Provider:?SOCORRO Escobar Date:? 3 Generated for Lavelli desmond/Minal/eTransmitting on:?11/05/2024 07:06 AM CLINICAL NEUROPSYCHOLOGIST History and Physical Notes * HPI (History of Present Illness) Category Sub-Category Detail Notes Category Not es Rheumatology Patient is a 38 year-old female presenting for f/u of fibromyalgia and RA. She reports pain in hips, ankles, back, shoulders. Also having RUQ abdominal pain. She was told that it may be FM. 2 years ago, she was running and started having pain in RUQ. She also started having numbness in right arm. Later on, she started having intermittent random pain, not related to activities. She has occasional cramps and tingling in her hands and wrists. She had testing for carpal tunnel and it was negative. Cold weather have aggravated her symptoms. Pain is worse in the morning. Usually her right hip hurts a lot when she gets out of bed. When she puts pressure in her left ankle, she feels a sharp pain. Left ankle pain is worse than right. Left shoulder worse than right, hurts to raise arms. Occasional pain in left knee. Fingers feel puffy in the morning. She types a lot for work and hands hurt at the end of the day. Every day something different hurts. She reports fatigue. She has been having HAs and they have been worse. She started taking Celebrex qd about a week ago, but has not noticed any difference. It has not helped with her joint pain either. Duloxetine was increased to 60mg qd. Denies fever, skin rashes, dry eyes, oral ulcers, dysphagia. She has occasional dry mouth. States that UA always has blood. She has occasional dysuria, painful intercourse. She has constipation. GI advised miralax. No pain when eating. She has occasional heartburn when she eats foods with flour like bread. She gets intermittent abscesses in groin area. This started about a year ago. She sees wholesale parts salesperson and was prescribed doxycycline. She has insomnia. She wears a CPAP. No know family history of FM, RA. 10/15/22 She is still having pain in hips, more so on right side. She is doing cupping on post. She tried Mj a few days, helped a little. She hurts more when she is active. She saw neurologist last week and was diagnosed with migraines. She was advised to continue Celebrex for now and has a f/u next week. Celebrex helps decrease intensity of headaches. Celebrex does not help with her joints. She made an appt with supervisor locomotive for evaluation of ankle pain. Yesterday, she had pain in right shoulder and right SI joint, but they are better today. Left shoulder and left ankle are hurting. It hurts to raise foot. 12/22/22 She stopped Celebrex for headaches. Neurologist prescribed another medication, thinks it is rizatriptan, PRN for migraines and it has helped. She started HCQ after last visit and feels that it has helped some. She is tolerating it well. Today, she has pain in right hip and left knee. She saw a supervisor locomotive for her ankle. She was given a brace to use when she is more active or walking long distances. She has been having more low back pain the past 1-2 weeks. Pain is worse after she sits for a long time. Low back and hip also hurts in the morning. 02/24/23 She has been having more pain in right hand this past month. It hurts to type and write. She wakes up with pain and swelling in right hand. Fingers feel very rigid and they cramp up at times. Right wrist also hurts. Left knee is a little better. Right hip is still hurting some. She is doing cupping for her hip and low back at [place]. She is currently in process of leaving the . Left hand hurts when it is cold. 05/24/23 She is still having pain and stiffness in hands, right worse than left. They still swell up at times. She went bowling on Wednesday and right hand fingers started cramping and getting stuck. Back and right hip is is still hurting a lot. She is still doing cupping which helps some. Other joints are about the same. 08/24/23 She is traveling to [place] to visit family. Cold weather has aggravated her symptoms. Hands and hurting. They were swollen yesterday. Today they are a little better. She is still having back and neck pain. She tried a nerve blocks for neck pain last week. Neck was very stiff and she could not move her neck for a day. Physical Examination Category Sub-Category Detail Notes Section Note s General General appearence pleasant Build average Examination Category Sub-Category Detail Notes Category Not es General examination HEENT ATNC, PERRL/EOMI, No Pallor Neck: No JVD, No Cervical lymph adenopathy, No thyroid enlargement CVS: S1 + S2, No murmurs Lungs: CTA B/L Abdomen: BS+, No tenderness, No organomegaly Extremities: no clubbing, no sylvia a, no cyanosis General appearance: well nourished and h ydrated, pleasant, no acute distress Skin: no rash, moist, warm , no tophi, no nail fold changes, no palpable purpura, no onycholysis, no telangiectasias Neurologic: AAOx3, muscle streng th 5/5 B/L, No gross motor or sensory deficit Oral cavity: no lesions, no thrus h, no stomatitis, no ulcers, moist Peripheral pulses: normal (2+) bilatera lly Musculoskeletal: Lymph nodes: no supraclavicular o r cervical lymphadenopathy Psych Affect and Mood wnls Rheumatology Cervical spine: normal ROM Shoulders: +tender, dec ROM on left Elbows: nontender, FROM bila terally Wrists: nontender, FROM bila terally Hands: nontender, no synovi tis Thoracic spine: normal Lumbar spine: nontender Hips: FROM, nontender Knees: normal alignment and ROM Ankles: nontender, no synovi tis, FROM bilaterally Feet: no tenderness, no sy novitis
--- OUTSIDE RECORDS SUMMARY | 2024-11-05 12:23 | XMS_ITS ---
Author Organization [facility] Address [address] [facility] [place] [address] Care Team Providers Care Ship Propeller Finisher Name Role Phone None, Primary Care Provider UnavailJuan Clifton Unavailable [phone] [place] Carolny Harmon Unavailable Roxana vailable Allergies No Known Allergies REASON FOR VISIT I am here for spots in my legs. DOMA/VA Carolyn Bill/Lesion Medications Medication SIG (Take, Route, Frequency, Duration) Notes Start Date End Date Status tretinoin topical 0.025% 1 mary applied t opically to lesions once a day (at bedtime) for 30 day(s) 10/07/2023 Active Hibiclens 4% 1 mary applied topica lly once daily for 30 day(s) 10/07/2023 Active clindamycin topical 1% 1 mary applied top ically to lesions 2 times a day for 30 day(s) 10/07/2023 Active clindamycin topical Active IUD Active Problems No Known Problems Vital Signs Height 5 ft 2 in in 10/07/2023 Weight 165 lbs 10/07/2023 BMI 30.18 kg/m2 10/07/2023 Encounters Encounter Location Date Provider Diagnosis [facility] [address] [place] [address] 10/07/2023 Juan Conley Hidradenitis suppurativa L73.2 and Tenderness R52 Assessments Encounter Date Diagnosis (ICD Code) Assessment Notes Treatment Notes Treatment Clinical Notes Section Notes 10/07/2023 Hidradenitis suppurativa (ICD-10 - L73.2) Lesions to groin for years, had history of surgical excision to left inguinal in past. Newer lesions to medial thighs. Pt treated previously with doxycycline and topical clindamycin, but lesions have never completely resolved. Denies any lesions to axillae or breast. Notes stress as a trigger. Denies smoking. No monthly menses d/t IUD placement. On exam, c/w HS stage 1 or less. Discussed mainly prevention with topicals and adding oral med for half-way and progress as needed. Discussed spironolactone but pt discussed she may consider adding to her family in near future. Will hold on orals for now. If she becomes , rec to d/c tretinoin. HIDRADENTITIS SUPPRATIVA: Patient understands this is a chronic inflammatory skin disease that commonly affects skin folds such as the groin, axillae and inframammary area. It is characterized by persistent boil-like nodules and abscesses that often result in purulent discharge and scarring. Weight reduction, smoking cessation and loose fitting clothing may reduce symptoms. Patient informed that can be associated with other metabolic disease, such heart disease or endocrine diseases such as diabetes, so annual visit to PCP warranted. Treatment options include topical therapies such as antibiotics and washes such as Hibiclens and BPO. Oral antibiotics may also be considered. If the above deems unsuccessful, can consisted biologic therapy with Humira. 10/07/2023 Tenderness (ICD-10 - R52) 10/07/2023 Other Plan Of Treatment Medication Medication Name Sig Start Date Stop Date Notes tretinoin topical 0.025% 1 mary applied t opically to lesions once a day (at bedtime) for 30 day(s) 10/07/2023 Hibiclens 4% 1 mary applied topica lly once daily for 30 day(s) 10/07/2023 clindamycin topical 1% 1 mary applied top ically to lesions 2 times a day for 30 day(s) 10/07/2023 Treatment Notes Assessment Notes Hidradenitis suppurativa Lesions to groin for years, had history of surgical excision to left inguinal in past. Newer lesions to medial thighs. Pt treated previously with doxycycline and topical clindamycin, but lesions have never completely resolved. Denies any lesions to axillae or breast. Notes stress as a trigger. Denies smoking. No monthly menses d/t IUD placement. On exam, c/w HS stage 1 or less. Discussed mainly prevention with topicals and adding oral med for half-way and progress as needed. Discussed spironolactone but pt discussed she may consider adding to her family in near future. Will hold on orals for now. If she becomes , rec to d/c tretinoin. HIDRADENTITIS SUPPRATIVA: Patient understands this is a chronic inflammatory skin disease that commonly affects skin folds such as the groin, axillae and inframammary area. It is characterized by persistent boil-like nodules and abscesses that often result in purulent discharge and scarring. Weight reduction, smoking cessation and loose fitting clothing may reduce symptoms. Patient informed that can be associated with other metabolic disease, such heart disease or endocrine diseases such as diabetes, so annual visit to PCP warranted. Treatment options include topical therapies such as antibiotics and washes such as Hibiclens and BPO. Oral antibiotics may also be considered. If the above deems unsuccessful, can consisted biologic therapy with Humira. Next Appt Details Follow Up: 4 Weeks, Reason: Lesion Progress Notes * HENRY SILVERMANLuba BATEMANaDOB:[birth year] (38 yo F)Acc No.[id number]:10/07/2023 Progress Notes Patient:?Bushra CHAMBERLAIN Provider:?Juan Parnell PA-C :1985???Age:38 Y???Sex:Female D ate:10/07/2023 Address:[address] [place] [address], [facility] [id number] Pcp:Dr Ward Subjective: * Chief Complaints: * ???I am here for spots in my legs. CHIP/CRISTIN Bill/Lesion * HPI: ???Vascular Surgery Physician:?Vascular Surgery Physician?SULEMA Zhang.?SPOT #1:?Where:?Groin .?How Long:?Years.?Timing:?Gradually.?Symptoms:?Pain/Tenderness,Bleeding,Itching,Red.?Previous treatment:?Yes.? * ROS:?GASTROENTEROLOGY:?Nausea?No.?GENITOURINARY (female):?Late or absent period?Yes.?HEMATOLOGY/LYMPH:?Non healing wounds?No.?NEUROLOGY:?Headache/Dizziness?Yes.?PSYCHOLOGY:?Anxiety/Stress?Yes.?SKIN:?Develops scars/keloids?Yes.?Itching?Yes.?Bruising?No.? * Medical History:? * Surgical History:?No Surgica l History documented. * Hospitalization/Major Diagno stic Procedure:?No Hospitalization History. * Family History:?Family Hx of Melanoma: No.?Family Hx Atypical Moles: No,Yes-Father.?Family Hx of Autoimmune: No.? * Social History:?Alcohol: Do you typically have 6 or more alcohol containing drinks on one occasion?: No. ???Smoker: Are you a current every day smoker, vape user, or any other form of nicotine?: No. ???Sunscreen use: No. * Medications:?Takingclindamyc in topical IUD Medication List reviewed and reconciled with the patientTaking clindamycin topical Taking IUD Medication List reviewed and reconciled with the patient * Allergies:?N.K.D.A.no[Allerg ies Verified] Objective: * Vitals:?Ht:5 ft 2 in, Wt:165 , BMI:30.18. * Physical Examination:?GENERAL:?Appearance/Body Habitus:?medium, groomed.?Mood:?calm.?Orientation:?alert.?HEAD:?Eyes:?Eyelids WNL, Conjunctiva WNL, Iris WNL.?LEFT UPPER BODY:?Groin:?Violaceous HP pp; No sign of tunneling. .?RIGHT UPPER BODY:?Groin:?Violaceous HP pp; post-surgical scar. No sign of tunneling. .? Assessment: * Assessment: 1.?Hidradenitis suppurativa - L73.2 (Primary)?2.?Tenderness - R52? Plan: * Treatment: * Procedure Codes:? * Preventive Medicine:?To access your patient portal, visit [email or web address]. Choose patient portal & new window will open>Scroll down to Patient Portal is a secure...>Click Login>Choose using mobile phone >Click send code LAB RESULTS: Within 2 weeks our office will contact you regarding any lab results. Your provider will need time to review results and formulate a plan. SKIN CARE PRODUCTS CAN BE PURCHASED AT [email or web address]. * Follow Up:?4 Weeks (Reason: Lesion) * * SUPERVISOR Sign off status: Completed true * Provider:?Juan Parnell PA-C Date:?07/2024 Generated for Mary logan/Minal/eTprachiitting on:?11/05/2024 07:06 AM DIKE SUPERVISOR History and Physical Notes * HPI (History of Present Illness) Category Sub-Category Detail Notes Category Not es SPOT #1 Where: Groin How Long: Years Symptoms: Pain/Tenderness,Blee ding,Itching,Red Previous treatment: Yes Timing: Gradually Vascular Surgery Physician SULEMA Olsen Physical Examination Category Sub-Category Detail Notes Section Note s HEAD Eyes: Eyelids WNL, Con junctiva WNL, Iris WNL GENERAL Appearance/Body Habitus: medium, groomed Mood: calm Orientation: alert LEFT UPPER BODY Groin: Violaceous HP pp; No sign of tunneling. RIGHT UPPER BODY Groin: Violaceous HP p p; post-surgical scar. No sign of tunneling.
--- OUTSIDE RECORDS SUMMARY | 2024-11-05 12:23 | XMS_ITS | Patient Health Record ---
Author Organization [facility] Billing Info Address [address] [place] [address] Support Name Relationship Address Phone [facility] [address] [place] [address] Stacia Boland Guarantor Unknown Reason For Referral No Information Problems Problem Type SNOMED Code ICD Code Onset Dates Problem Status W/U Status Risk Notes Problem Chest pain (42817906) Chest pain (R07.9) Active confirmed Plan Of Treatment No Information
--- OUTSIDE RECORDS SUMMARY | 2024-11-05 12:23 | XMS_ITS ---
Author Organization [facility] Address [address] [place] [address] Care Team Providers Care Adjunct Political Science Instructor Name Role Phone None, Primary Care Provider Juan Coronado Unavailable [phone] [place] Carolyn Harmon Roxana vailable REASON FOR VISIT Rash- 4 week f/u Problems No Known Problems Encounters Encounter Location Date Provider Diagnosis [facility] [place] [address] [place] [address] 11/04/2023 Juan Conley Plan Of Treatment No Information Progress Notes * Herve CHAMBERLAINB:[birth year] (39 yo F)Acc No.[id number]:11/04/2023 Progress Notes Patient:?Bushra CHAMBERLAIN Provider:?Juan Parnell PA-C :1985???Age:38 Y???Sex:Female D ate:11/04/2023 Address:[address] [facility] [place], [id number] Pcp:Dr Ward Subjective: * Chief Complaints: * ???1. Rash- 4 week f/u. * Medical History:? Objective: * Vitals:? Assessment: Plan: * Treatment: * * Electronic signature of Johanny Conley PA-C on 11/05/2024 at 11:23 AM GAMEPLAY PROGRAMMER Sign off status: Pending * Provider:?Juan Parnell PA-C Date:?04/2024 Generated for Mary logan/Minal/Carrie on:?11/05/2024 11:23 AM GAMEPLAY PROGRAMMER
--- OUTSIDE RECORDS SUMMARY | 2024-11-05 12:23 | XMS_ITS ---
Author Organization [facility]. Address [address] [place] [address] Care Team Providers Care Hair Boiler Operator Name Role Phone , Referral Primary Care Provider Derrell Solomon [phone] REASON FOR VISIT Cancel Appointment Request Encounters Encounter Location Date Provider Diagnosis [facility]. [address] [place] [phone] 10/28/2023 Derrell Bello Plan Of Treatment No Information Progress Notes * Herve CHAMBERLAINB:[birth year] (38 yo F)Acc No.[id number]:10/28/2023 Patient:?uBshra CHAMBERLAIN :1985???Age:38 Y???Sex:Female Address:[address], [place], [address] * true * Date:? Generated for Mary logan/Minal/eTransmitting on:?11/05/2024 07:06 AM SOFA BACK UPHOLSTERER
--- OUTSIDE RECORDS SUMMARY | 2024-11-05 12:23 | XMS_ITS ---
Author Organization [facility] Billing Info Address [address] [place] [address] Care Team Providers Care Griddle Attendant Name Role Phone YOSEF ARANA Unavailable [phone] REASON FOR VISIT [facility] MCT Interpretation Encounters Encounter Location Date Provider Diagnosis [id number] [place] [id number] [id number] 05/14/2023 YOSEF ARANA Plan Of Treatment No Information Progress Notes * Stacia BOLANDeDOB :1985 (39 yo F)Acc No.[id number]:05/14/2023 PROGRESS NOTE Patient:?Stacia BOLAND Provider:?YOSEF ARANA MD :1985???Age:38 Y???Sex:Female D ate:05/14/2023 ?N#:[id number] Address:[address] [place], [place] [id number] Subjective: * Chief Complaints: * ???1. [facility] MCT Inte rpretation. * Medical History:?? Objective: * Vitals:? Assessment: Plan: * Treatment: * * This progress note has not b een verified nor is it considered complete until locked and signed by the provider. Sign off status: Pending * Provider:?YOSEF ARANA MD Date: ?05/14/2023 Generated for Mary logan/Faxing/eTransmitting on:?11/05/2024 07:06 AM AUTO REBUILDER
--- OUTSIDE RECORDS SUMMARY | 2024-11-05 12:23 | XMS_ITS ---
Author Organization [facility]. Address [address] [address] Care Team Providers Care Tobacco Conditioner Name Role Phone , Referral Primary Care Provider Derrell Solomon Unavailable [phone] Allergies No Known Allergies Medications Medication SIG (Take, Route, Frequency, Duration) Notes Start Date End Date Status rizatriptan 10 mg 1 tab(s) orally once a day PRN PRN Active Vitamin D2 50,000 intl units 1 cap(s) or ally once a week for 90 days Active predniSONE 5 mg 1-2 tab(s) orally on ce a day PRN for flare ups of pain and inflammation for 30 days Active Hydroxychloroquine Sulfate 200 mg 1 tab(s) orally 2 times a day. Take with food. for 90 day(s) Active clindamycin topical 1% 1 mary applied top ically 2 times a day for 30 day(s) PRN Active doxycycline hyclate 100 mg 1 tab(s) oral ly once a day Active DULoxetine 60 mg 1 cap(s) orally once a day for 30 day(s) Active cyclobenzaprine 10 mg 1 tab(s) orally on ce a day PRN Active Social History Tobacco Use: Social History Observation Description Date Details (start date - stop date) Former Smoker NA - NA Alcohol Screening Question Answer Notes Did you have a drink containing alcohol in the p ast year? No smoking Question Answer Notes Are you a: former smoker Quit 2019 ( smok er for 1 yr ) Encounters Encounter Location Date Provider Diagnosis [facility]. [address] [facility] [address] [place] [address] 11/02/2023 Derrell Bello Plan Of Treatment No Information Progress Notes * Luba CHAMBERLAINaDOB:[birth year] (39 yo F)Acc No.[id number]:11/02/2023 Progress Notes Patient:?Bushra CHAMBERLAIN Provider:?SOCORRO Escobar :1985???Age:38 Y???Sex:Female D ate:11/02/2023 Address:[address] [place] [address], [facility] Pcp:Referral Alyssa Subjective: * Chief Complaints: * ??? * Medical History:?Anxiety, De pression, Insomnia, Sleep Apnea (on CPAP), Migraine headache. * Surgical History:?Appendecto my 2007. * Family History:?Father: allison calderón.?Mother: alive.?1 brother(s) , 1 sister(s) - healthy. 1 son(s) - healthy. .? * Social History:?Smoking: no? Are you a:?former smoker Quit 2019 ( smoker for 1 yr ) .?Sexual [...] capsule 1 cap(s) orally once a week * Allergies:?N.K.D.A. Objective: * Vitals:? Assessment: Plan: * Treatment: * Procedure Codes:?NOSHO No Sh ow * Billing Information: * Visit Code:? * Procedure Codes:? NOSHO No Show. * Electronic signature of WALLY Escobar on 11/05/2024 at 07:06 AM CLAIMS ASSISTANT Sign off status: Pending * Provider:?SOCORRO Escobar Date:? 4 Generated for Mary logan/Minal/Carrie on:?11/05/2024 07:06 AM CLAIMS ASSISTANT
--- OUTSIDE RECORDS SUMMARY | 2024-11-05 12:23 | XMS_ITS ---
Author Organization [facility] Billing Info Address [address] [place] [id number] Care Team Providers Care Crop Production Advisor Name Role Phone YOSEF ARANA Unavailable [phone] REASON FOR VISIT 72 hour holter monitor/cc Procedures Procedure Date Ordered Date Performed Result Body Sit e HOLTER 48 HR (06352) 05/05/2023 05/14/2023 N/A Encounters Encounter Location Date Provider Diagnosis [id number] [address] [facility] [address] [place], [place] [id number] 05/05/2023 YOSEF ARANA Chest pain R07.9 Assessments Encounter Date Diagnosis (ICD Code) Assessment Notes Treatment Notes Treatment Clinical Notes Section Notes 05/05/2023 Chest pain (ICD-10 - R07.9) Plan Of Treatment No Information Progress Notes * Stacia BOLANDeDOB :1985 (39 yo F)Acc No.[id number]:05/05/2023 PROGRESS NOTE Patient:?Stacia BOLAND Ana Provider:?YOSEF RAANA MD :1985???Age:38 Y???Sex:Female D ate:05/05/2023 ?CHN#:[id number] Address:[address] [place], [place] [id number] Subjective: * Chief Complaints: * ???1. 72 hour holter monitor /cc. * Medical History:?? Objective: * Vitals:? Assessment: * Assessment: 1.?Chest pain - R07.9??? Plan: * Treatment: * * This progress note has not b een verified nor is it considered complete until locked and signed by the provider. Sign off status: Pending * Provider:?YOSEF ARANA MD Date: ?05/05/2023 Generated for Mary logan/Minal/Carrie on:?11/05/2024 07:06 AM SENIOR CASE MANAGER
--- OUTSIDE RECORDS SUMMARY | 2024-11-05 12:23 | XMS_ITS | Patient Health Record ---
Author Organization [employer] [facility] [email or web address] [facility] Address [address] [place] [address] Care Team Providers Care Router Operator Radial Name Role Phone None, Primary Care Provider Juan Coronado Unavailable [phone] [place] Carolyn Harmon Unavailable Roxana vailable Allergies No Known Allergies Reason For Referral No Information Medications Medication SIG (Take, Route, Frequency, Duration) [...] Active IUD Active Problems No Known Problems Plan Of Treatment No Information Insurance Providers Payer Name Payer Address Payer Phone Subscriber Number Group Number Insured Name Patient Relationship to Insured Coverage Start Date Coverage End Date [facility] [employer] [address] [place] [phone] [id number] Bushra Heath Self - patient is the insured Medical (General) History Medical History History ICD Code Skin Cancer: No Atypical Moles: No Arthritis: Yes Artificial Joints: No Congestive Heart Failure: No Coronary Artery Disease: No Blood Thinners(including Aspirin): No Diabetes: No Endocarditis(Infection of the Heart): No Heart Valve Replacement: No Hepatitis C: No High Blood Pressure: No Seizures: No Stroke: No Pacemaker/Defibrillator: No HIV/Aids: No Surgical History Surgery Date(Month/Year) Hospitalization History Reason Date(Month/Year)
--- OUTSIDE RECORDS SUMMARY | 2024-11-05 12:24 | XMS_ITS ---
Author Organization [facility] Address [address] [place] [address] Care Team Providers Care Wood Carving Lathe Operator Name Role Phone None, Primary Care Provider Juan Coronado [phone] [place] Carolyn Harmon Roxana vailable REASON FOR VISIT Lesion Problems No Known Problems Encounters Encounter Location Date Provider Diagnosis [facility] [address] [place] [address] 12/06/2023 Juan Conley Plan Of Treatment No Information Progress Notes * HENRY SILVERMANTRONHerveB:[birth year] (39 yo F)Acc No.[id number]:12/06/2023 Progress Notes Patient:?Luba CHAMBERLAINa Provider:?Juan Parnell PA-C :1985???Age:38 Y???Sex:Female D ate:12/06/2023 Address:[address] [facility] [place], [id number] Pcp:Dr Ward Subjective: * Chief Complaints: * ???1. Lesion. * Medical History:? Objective: * Vitals:? Assessment: Plan: * Treatment: * * Electronic signature of Johanny Conley PA-C on 11/05/2024 at 07:06 AM BAND MAKER Sign off status: Pending * Provider:?Juan Parnell PA-C Date:?07/2024 Generated for Mary logan/Minal/Daviditting on:?11/05/2024 07:06 AM BAND MAKER
[2024-11-05 12:25] LABS: Bacteria Urine None Seen (None Seen); Hyaline Casts Urine 0-2 /LPF (0-2); INTERNATIONAL NORM RATIO 1.1 (0.9-1.1); Prothrombin Time 12.9 SEC (10.9-12.4); RBC Urine >20 /HPF (0-2); Squamous Epithelial Cell Urine 0-2 /HPF (0-2); UACC Culture Trigger YES; WBC Urine >50 /HPF (0-5)
[2024-11-05 12:34] LABS: Alanine Aminotransferase 19 U/L (0-31); Albumin Level 4.2 g/dL (3.5-5.0); Alkaline Phosphatase 62 U/L (39-117); Anion Gap 12 (12-20); Aspartate Amino Transferase 25 U/L (5-31); Bilirubin Total 0.5 mg/dL (0.0-1.0); Blood Urea Nitrogen 14 mg/dL (9-16); Calcium 9.1 mg/dL (8.4-10.2); Carbon Dioxide 24 mmol/L (22-29); Chloride 107 mmol/L (96-108); Creatinine Clr Calc Pharmacy 99.6; Estimated Glomerular Filt Rate > 60; Glucose Random 103 mg/dL (60-115); Lipase 13 U/L (8-78); Magnesium 1.9 mg/dL (1.6-2.6); Potassium 4.4 mmol/L (3.3-5.1); Sodium 139 mmol/L (135-145); Total Protein 8.1 g/dL (6.5-8.0)
[2024-11-05] MEDS: 0.9 % Sodium Chloride 1,000 ML 999 ML IV (13:33)
[2024-11-05 13:39] LABS: OBS1 NEGATIVE (NEGATIVE)
[2024-11-05 13:40] LABS: OBS Int Ctl Valid YES
[2024-11-05 14:22] LABS: Influenza A PCR NEGATIVE (Negative); Influenza B PCR NEGATIVE (Negative); Resp Syncy Virus RNA Qual PCR NEGATIVE (Negative); SARS COV2 PCR INHOUSE NEGATIVE (Negative)
[2024-11-05] MEDS: Famotidine/PF 20 MG/2 ML VIAL IVPUSH (14:32)
[2024-11-05] MEDS: iohexoL 350 MG/ML 100 ML INFUS..BTL IV (14:36)
[2024-11-05 17:57] VITALS: BP 124/71; PULSE 77; RESP 14; O2SAT 99
[2024-11-05 18:43] VITALS: BP 127/79; PULSE 79; RESP 18; O2SAT 98
[2024-11-05] MEDS: Ketorolac Tromethamine 30 MG/ML VIAL IM (19:03)
[2024-11-05 19:06] VITALS: BP 127/79; PULSE 79; RESP 18; TEMP 36.7; O2SAT 98
== END 2024-11-05 19:08 | disposition home or self-care (01) ==
PROVIDERS: Nurse Practitioner Family; Physician Assistant Medical; Emergency Provider Emergency Medicine
DX: K52.9 Noninfective gastroenteritis and colitis, unspecified (principal); N39.0 Urinary tract infection, site not specified; R10.30 Lower abdominal pain, unspecified; R10.2 Pelvic and perineal pain; R11.2 Nausea with vomiting, unspecified; Z03.818 Encounter for observation for suspected exposure to other biological agents ruled out; Z79.899 Other long term (current) drug therapy
CPT/HCPCS: 0241U; 36415; 74177; 76830; 76856; 80053; 81001; 81025; 82272; 83690; 83735; 85025; 85610; 87086; 87147; 93975; 96361; 96372; 96374; 99284; J1885; Q9967

== ENCOUNTER → 2024-11-05 13:19 | Outpatient (BNV) | payer OTHER, SELFPAY | PROVIDERS: Emergency Provider Emergency Medicine; Visit Provider Radiology Diagnostic Radiology | DX: N83.202 Unspecified ovarian cyst, left side (principal) | CPT/HCPCS: 74177; 76830; 76856; 93975 ==